=== PATIENT | female | born 1955 | race Caucasian/White ===

== ENCOUNTER → 2020-03-29 | Outpatient (CLI) | payer BC, OTHER | LOC: SJCVCIMAG 06:39 | PROVIDERS: ATTEND Podiatrist | DX: R29.898 Other symptoms and signs involving the musculoskeletal system (principal); M79.89 Other specified soft tissue disorders; M79.604 Pain in right leg; M79.605 Pain in left leg; L81.9 Disorder of pigmentation, unspecified ==